=== PATIENT | female | born 1950 | race Caucasian/White ===

== ENCOUNTER → 2016-09-19 | Outpatient (CLI) | payer MEDICARE, BC ==
[~2016-09-19] MED LIST: AMARYL1 MG PO; ASPIRIN 81M81 MG/TA2 PO; B-12 100 MCG PO; CALCIUM 600/VIT1 CAP PO; FISH OIL 1000MG1 CAP PO; FOSAMAX 70MG TA70 MG PO; GLUCOPHAGE500 MG/TAB PO; IRON TABLETS325 MG PO; LOTENSIN HCT 201 TAB PO; PRESERVISION1 SGL PO; VITAMIN C500 MG PO; VITAMIN D31000 IU PO; ZOCOR 10MG10 MG PO
== END ==
LOC: MC.RAD 09:20
DX: Z12.31 Encounter for screening mammogram for malignant neoplasm of breast (principal)

== ENCOUNTER → 2017-05-14 | Outpatient (CLI) | payer MEDICARE, BC ==
[~2017-05-14] VITALS: Ht 165.1 cm; Wt 96.3 kg
[2017-05-14 05:59] VITALS: BP 140/78; PULSE 73
[2017-05-14 07:10] VITALS: BP 144/80; PULSE 86
[2017-05-14 07:20] VITALS: BP 150/82; PULSE 130
[2017-05-14 07:22] VITALS: BP 160/88; PULSE 104
[2017-05-14 07:24] VITALS: BP 142/82; PULSE 93
== END ==
LOC: COL.CARD 05:45
DX: R06.02 Shortness of breath (principal); M25.511 Pain in right shoulder; M25.512 Pain in left shoulder
CPT/HCPCS: A9502; J2785

== ENCOUNTER → 2018-06-02 | Outpatient (CLI) | payer MEDICARE, BC | LOC: MHCPAIN 09:28 | DX: G89.29 Other chronic pain (principal); M47.817 Spondylosis without myelopathy or radiculopathy, lumbosacral region; M54.16 Radiculopathy, lumbar region; M53.3 Sacrococcygeal disorders, not elsewhere classified; M79.10 Myalgia, unspecified site | CPT/HCPCS: G0463 ==

== ENCOUNTER → 2018-06-10 | Outpatient (CLI) | payer MEDICARE, BC | LOC: MHCPAIN 13:29 | DX: G57.03 Lesion of sciatic nerve, bilateral lower limbs (principal) | CPT/HCPCS: G0260; J1040 ==

== ENCOUNTER → 2018-07-13 | Outpatient (CLI) | payer MEDICARE, BC | LOC: MHCPAIN 09:17 | DX: G89.29 Other chronic pain (principal); M47.817 Spondylosis without myelopathy or radiculopathy, lumbosacral region; M54.16 Radiculopathy, lumbar region; M53.3 Sacrococcygeal disorders, not elsewhere classified; M54.9 Dorsalgia, unspecified | CPT/HCPCS: G0463 ==

== ENCOUNTER 2018-08-10 16:56 | Inpatient (IN) | payer MEDICARE, BC ==
[~2018-08-10] VITALS: Ht 165.1 cm; Wt 89.0 kg
[2018-08-10] VITALS (183 sets, daily range): BP systolic 139; BP diastolic 79; PULSE 94; TEMP 97.6; O2SAT 85–100
[2018-08-10 17:41] LABS: BASO % 0.2 % (0.0-2.0); EOS % 0.3 % (0-4.0); GRAN # 7.4 (1.4-6.5); GRAN % 83.3 % (42.2-75.2); LYMPH # 0.8 (1.2-3.4); LYMPH % 8.6 % (20.0-51.0); MEAN CELL VOLUME 98 fl (80.0-100.0); MEAN CORPUSCULAR HGB CONC 34 g/dl (33.0-37.0); MEAN PLATELET VOLUME 9.9 fl (7.4-10.4); MONO # 0.6 (0.1-0.6); MONO % 6.7 % (1.7-9.3); PLATELET COUNT 207 K/mm3 (130-400); RED BLOOD COUNT 2.73 M/mm3 (4.10-5.30); REDCELL DISTRIBUTION WIDTH-CV 12.9 % (11.5-14.5)
[2018-08-10 17:42] LABS: HEMATOCRIT 26.8 % (37.0-47.0); MEAN CORPUSCULAR HEMOGLOBIN 33 pg (27.0-31.0)
[2018-08-10 17:53] LABS: ALANINE AMINOTRANSFERASE 25 U/L (9-52); ALKALINE PHOSPHATASE 57 U/L (50-136); ANION GAP 23 mmol/L (7-16); AST,SGOT 18 U/L (15-37); BILIRUBIN,TOTAL 0.8 mg/dL (0.0-1.0); BLOOD UREA NITROGEN 90 mg/dL (7-17); CALCIUM 9.1 mg/dL (8.4-10.2); CHLORIDE 105 mmol/L (98-107); GLUCOSE 251 mg/dL (74-106); POTASSIUM 3.6 mmol/L (3.4-5.0); SODIUM 139 mmol/L (137-145); TOTAL PROTEIN 6.6 gm/dL (6.4-8.2)
[2018-08-10 18:06] LABS: C-REACTIVE PROTEIN < 0.5 mg/dL (0.0-0.9); CARBON DIOXIDE 11 mmol/L (22-30); CREATININE, serum 9.73 mg/dL (0.52-1.25); TROPONIN-I < 0.012 ng/mL (0.000-0.034)
[2018-08-10] MEDS ORDERED: TOPROL XL 50MG50 MG PO (18:54)
[2018-08-10] MEDS ORDERED: GLUCOPHAGE500 MG/TAB PO (19:20)
[2018-08-10] MEDS ORDERED: ZOFRAN ODT8 MG PO (21:43)
[2018-08-10] MEDS ORDERED: ASPIRIN 81M81 MG/TA2 PO (22:15)
[2018-08-10] MEDS ORDERED: CALTRATE-600 W600 MG PO (22:16)
[2018-08-10] MEDS ORDERED: IRON (22:17)
[2018-08-10] MEDS ORDERED: OMEGA-3 FISH1000 MG PO (22:18)
[2018-08-10] MEDS ORDERED: VITAMIN B12 (22:20)
[2018-08-10] MEDS ORDERED: TRIAMCINOLONE A15 G1 TP (22:20)
[2018-08-10] MEDS ORDERED: VITAMIN C (22:21)
[2018-08-10] MEDS ORDERED: VITAMIN D31000 I1 PO (22:21)
[2018-08-11] VITALS (369 sets, daily range): BP systolic 137–176; BP diastolic 53–76; PULSE 74–100; TEMP 97.3–98.2; O2SAT 92–100
[2018-08-11 05:45] LABS: BASO % 0.3 % (0.0-2.0); EOS # 0.1 (0.0-0.7); EOS % 1.1 % (0-4.0); GRAN # 5.6 (1.4-6.5); GRAN % 73.5 % (42.2-75.2); LYMPH % 13.8 % (20.0-51.0); MEAN CELL VOLUME 98 fl (80.0-100.0); MEAN CORPUSCULAR HGB CONC 34 g/dl (33.0-37.0); MONO # 0.8 (0.1-0.6); MONO % 10.6 % (1.7-9.3); PLATELET COUNT 151 K/mm3 (130-400); RED BLOOD COUNT 2.33 M/mm3 (4.10-5.30); REDCELL DISTRIBUTION WIDTH-CV 12.9 % (11.5-14.5)
[2018-08-11 05:47] LABS: HEMATOCRIT 22.9 % (37.0-47.0); HEMOGLOBIN 7.7 g/dl (12.5-16.0); MEAN CORPUSCULAR HEMOGLOBIN 33 pg (27.0-31.0)
[2018-08-11 05:53] LABS: INR 1.1 (0.8-3.0); PROTHROMBIN TIME 12.4 SECONDS (9.7-12.8)
[2018-08-11 05:56] LABS: HEMOGLOBIN A1C 5.9 %
[2018-08-11 05:58] LABS: ALBUMIN 3.1 gm/dL (3.5-5.0); BILIRUBIN,TOTAL 0.8 mg/dL (0.0-1.0); CALCIUM 8.4 mg/dL (8.4-10.2); POTASSIUM 3.3 mmol/L (3.4-5.0); TOTAL PROTEIN 5.4 gm/dL (6.4-8.2)
[2018-08-11 06:03] LABS: CREATININE, serum 9.03 mg/dL (0.52-1.25)
[2018-08-11 06:23] LABS: LACTIC ACID 4.2 mmol/L (0.4-2.0)
[2018-08-11 10:32] LABS: COLLECTION METHOD CLEAN CATCH
[2018-08-11 10:59] LABS: URINE PROTEIN:CREAT RATIO 0.67 (0.00-0.14)
[2018-08-11 11:03] LABS: MUCOUS Present /lpf; PH 5 (5-8); SQUAMOUS EPITHELIAL 0-2 /hpf; URINE APPEARANCE Clear; URINE BACTERIA None Seen /hpf; URINE BILIRUBIN Negative (NEGATIVE); URINE BLOOD Negative (NEGATIVE); URINE COLOR Yellow; URINE GLUCOSE Negative (NEGATIVE); URINE KETONE Trace (NEGATIVE); URINE LEUKOCYTE ESTERASE Negative (NEGATIVE); URINE NITRATE Negative (NEGATIVE); URINE PROTEIN(semi-quant) 1+ (NEGATIVE); URINE RBC None Seen /hpf; URINE UROBILINOGEN Negative (NEGATIVE); URINE WBC 0-2 /hpf
[2018-08-11 17:57] LABS: COMPLEMENT-C3 89 mg/dL (79-152); COMPLEMENT-C4 26 mg/dL (18-55)
[2018-08-11 20:48] LABS: C-ANCA 3 U/mL (0-99)
[2018-08-12] VITALS (15 sets, daily range): BP systolic 137–186; BP diastolic 43–85; PULSE 61–76; TEMP 97.8–98.2
[2018-08-12 06:13] LABS: BASO % 0.2 % (0.0-2.0); EOS # 0.1 (0.0-0.7); EOS % 1.1 % (0-4.0); GRAN # 4.8 (1.4-6.5); LYMPH % 15.6 % (20.0-51.0); MEAN CELL VOLUME 98 fl (80.0-100.0); MEAN CORPUSCULAR HGB CONC 34 g/dl (33.0-37.0); MEAN PLATELET VOLUME 10.1 fl (7.4-10.4); MONO # 0.7 (0.1-0.6); MONO % 10.5 % (1.7-9.3); PLATELET COUNT 164 K/mm3 (130-400); RED BLOOD COUNT 2.12 M/mm3 (4.10-5.30); REDCELL DISTRIBUTION WIDTH-CV 13.2 % (11.5-14.5)
[2018-08-12 06:14] LABS: HEMATOCRIT 20.7 % (37.0-47.0); MEAN CORPUSCULAR HEMOGLOBIN 33 pg (27.0-31.0)
[2018-08-12 06:27] LABS: ALBUMIN 2.9 gm/dL (3.5-5.0); BILIRUBIN,TOTAL 0.3 mg/dL (0.0-1.0); CALCIUM 7.5 mg/dL (8.4-10.2); MAGNESIUM 1.4 mg/dL (1.6-2.3); POTASSIUM 3.3 mmol/L (3.4-5.0); TOTAL PROTEIN 5.1 gm/dL (6.4-8.2)
[2018-08-12 06:51] LABS: CREATININE, serum 8.74 mg/dL (0.52-1.25)
[2018-08-13] VITALS (11 sets, daily range): BP systolic 123–185; BP diastolic 45–71; PULSE 66–81; TEMP 97–98.6
[2018-08-13 07:57] LABS: BASO % 0.2 % (0.0-2.0); EOS # 0.2 (0.0-0.7); EOS % 3.4 % (0-4.0); GRAN # 4.2 (1.4-6.5); GRAN % 71.5 % (42.2-75.2); LYMPH # 0.8 (1.2-3.4); LYMPH % 13.4 % (20.0-51.0); MEAN CELL VOLUME 98 fl (80.0-100.0); MEAN CORPUSCULAR HGB CONC 34 g/dl (33.0-37.0); MEAN PLATELET VOLUME 10.3 fl (7.4-10.4); MONO # 0.7 (0.1-0.6); PLATELET COUNT 164 K/mm3 (130-400); RED BLOOD COUNT 2.09 M/mm3 (4.10-5.30); REDCELL DISTRIBUTION WIDTH-CV 13.3 % (11.5-14.5)
[2018-08-13 08:00] LABS: HEMOGLOBIN 6.9 g/dl (12.5-16.0); MEAN CORPUSCULAR HEMOGLOBIN 33 pg (27.0-31.0)
[2018-08-13 08:01] LABS: HEMATOCRIT 20.5 % (37.0-47.0)
[2018-08-13 08:04] LABS: CALCIUM 7.7 mg/dL (8.4-10.2); MAGNESIUM 1.6 mg/dL (1.6-2.3); PHOSPHOROUS 4.7 mg/dL (2.5-4.5)
[2018-08-13 08:06] LABS: CREATININE, serum 5.68 mg/dL (0.52-1.25)
[2018-08-13 10:58] LABS: INR 1.1 (0.8-3.0); PROTHROMBIN TIME 12.2 SECONDS (9.7-12.8)
[2018-08-13 11:01] LABS: PARTIAL THROMBOPLASTIN TIME 37.1 SECONDS (26.0-37.0)
[2018-08-13 19:16] LABS: HEMATOCRIT 26.2 % (37.0-47.0); HEMOGLOBIN 8.8 g/dl (12.5-16.0)
[2018-08-14] VITALS (13 sets, daily range): BP systolic 129–161; BP diastolic 38–76; PULSE 64–78; TEMP 97.8–98.2
[2018-08-14 00:41] LABS: HEPATITIS B CORE AB,TOTAL Negative (()); HEPATITIS B SURFACE ANTIGEN Negative (Negative); HEPATITIS C VIRUS ANTIBODY Negative (Negative)
[2018-08-14 08:36] LABS: CALCIUM 8.1 mg/dL (8.4-10.2); POTASSIUM 3.3 mmol/L (3.4-5.0)
[2018-08-14 08:44] LABS: CREATININE, serum 4.22 mg/dL (0.52-1.25)
[2018-08-15 06:04] LABS: BASO % 0.2 % (0.0-2.0); EOS # 0.2 (0.0-0.7); EOS % 3.2 % (0-4.0); GRAN # 2.6 (1.4-6.5); GRAN % 56.6 % (42.2-75.2); LYMPH % 22.5 % (20.0-51.0); MEAN CELL VOLUME 97 fl (80.0-100.0); MEAN CORPUSCULAR HGB CONC 34 g/dl (33.0-37.0); MEAN PLATELET VOLUME 10.3 fl (7.4-10.4); MONO # 0.8 (0.1-0.6); MONO % 16.2 % (1.7-9.3); PLATELET COUNT 123 K/mm3 (130-400); RED BLOOD COUNT 2.33 M/mm3 (4.10-5.30); REDCELL DISTRIBUTION WIDTH-CV 14.1 % (11.5-14.5)
[2018-08-15 06:05] LABS: HEMATOCRIT 22.5 % (37.0-47.0); HEMOGLOBIN 7.6 g/dl (12.5-16.0); MEAN CORPUSCULAR HEMOGLOBIN 33 pg (27.0-31.0)
[2018-08-15 06:17] LABS: CALCIUM 8.1 mg/dL (8.4-10.2); CREATININE, serum 2.55 mg/dL (0.52-1.25); POTASSIUM 3.4 mmol/L (3.4-5.0)
[2018-08-15 07:59] VITALS: BP 164/68; PULSE 69; TEMP 98.1
[2018-08-15 11:40] VITALS: BP 166/64; PULSE 71; TEMP 98.4
== END 2018-08-15 13:39 | disposition home or self-care (01) | DRG 674 ==
LOC: COL.ER 16:56 → ICU 19:00 → MEDICAL 08-11 14:38
PROVIDERS: Emergency Medicine; Internal Medicine; Nurse Practitioner; Physician Assistant
PROC: 0JHD0XZ Insertion of Tunneled Vascular Access Device into Right Upper Arm Subcutaneous Tissue and Fascia, Open Approach (ICD-10-PCS; principal; 2018-08-11)
PROC: 06H033Z Insertion of Infusion Device into Inferior Vena Cava, Percutaneous Approach (ICD-10-PCS; 2018-08-11)
PROC: 5A1D70Z Performance of Urinary Filtration, Intermittent, Less than 6 Hours Per Day (ICD-10-PCS; 2018-08-12)
PROC: 5A1D70Z Performance of Urinary Filtration, Intermittent, Less than 6 Hours Per Day (ICD-10-PCS; 2018-08-13)
PROC: 5A1D70Z Performance of Urinary Filtration, Intermittent, Less than 6 Hours Per Day (ICD-10-PCS; 2018-08-14)
PROC: 0T913ZX Drainage of Left Kidney, Percutaneous Approach, Diagnostic (ICD-10-PCS; 2018-08-14)
DX: N17.9 Acute kidney failure, unspecified (principal); E87.2 Acidosis; I10 Essential (primary) hypertension; E11.3293 Type 2 diabetes mellitus with mild nonproliferative diabetic retinopathy without macular edema, bilateral; E78.5 Hyperlipidemia, unspecified; Z98.84 Bariatric surgery status; D64.9 Anemia, unspecified; E87.6 Hypokalemia; E83.39 Other disorders of phosphorus metabolism
CPT/HCPCS: 99223-AI; 99232-AI; 99233-AI; 99239; A4216; C1769; J0360; J0690; J0696; J0882; J1644; J1815; J2250; J2405; J2550; J3010; J7030; P9016

== ENCOUNTER → 2018-09-21 | Outpatient (CLI) | payer MEDICARE, BC ==
[~2018-09-21] MED LIST changes: +CALTRATE-600 W600 MG PO; +IRON; +OMEGA-3 FISH1000 MG PO; +TOPROL XL 50MG50 MG PO; +TRIAMCINOLONE A15 G1 TP; +VITAMIN B12; +VITAMIN C; +VITAMIN D31000 I1 PO; +ZOFRAN ODT8 MG PO
== END ==
LOC: COL.VAS 08:53
DX: N18.6 End stage renal disease (principal); Z99.2 Dependence on renal dialysis
CPT/HCPCS: G0365

== ENCOUNTER → 2018-10-12 | Outpatient (CLI) | payer MEDICARE, BC | LOC: MHCPAIN 09:16 | DX: G89.29 Other chronic pain (principal); M53.3 Sacrococcygeal disorders, not elsewhere classified; M54.16 Radiculopathy, lumbar region; M47.816 Spondylosis without myelopathy or radiculopathy, lumbar region | CPT/HCPCS: G0463 ==

== ENCOUNTER 2018-11-04 11:15 | Outpatient (RCR) | payer MEDICARE, BC | END 2018-11-16 | disposition home or self-care (01) | LOC: WSPT | DX: M54.2 Cervicalgia (principal); M54.6 Pain in thoracic spine; G89.29 Other chronic pain | CPT/HCPCS: G8978-GP; G8979-GP ==

== ENCOUNTER → 2018-11-23 | Outpatient (CLI) | payer MEDICARE, BC | LOC: MC.RAD 14:54 | DX: Z12.31 Encounter for screening mammogram for malignant neoplasm of breast (principal) ==

== ENCOUNTER → 2018-12-09 | Outpatient (CLI) | payer MEDICARE, BC ==
[~2018-12-09] VITALS: Ht 165.1 cm; Wt 87.0 kg
[~2018-12-09] MED LIST changes: +ATARAX 10MG10 MG/TAB PO; +BIOTIN5000 MCG PO; +PHOSLO667 MG PO; +PROBIOTIC FORMU1 CAP PO; +VITAMIN B125000 MCG PO; +[UNRECOGNIZED DRUG - OTHER] PO
[2018-12-09 14:31] VITALS: BP 148/66; PULSE 90
[2018-12-09 14:40] VITALS: BP 155/65; PULSE 83
--- NOTE | 2018-12-09 14:53 | NUR ---
Discharge instructions gone over with pt. Pt out to car per ambulation. Dressing clean dry and intact.
== END ==
LOC: COL.RAD 14:13
DX: N18.6 End stage renal disease (principal)

== ENCOUNTER 2019-01-18 14:15 | Outpatient (RCR) | payer MEDICARE, BC ==
[~2019-01-18 14:15] MED LIST changes: -IRON; +IRON PO
[2019-03-17] MEDS ORDERED: ZESTRIL2.5 MG PO (12:35)
[2019-03-17] MEDS ORDERED: ZYRTEC5 MG PO (12:36)
[2019-03-17] MEDS ORDERED: ATARAX 10MG10 MG/TAB PO (12:37)
[2019-03-17] MEDS ORDERED: SINGULAIR 5M5 MG/TAB PO (12:37)
[2019-03-17] MEDS ORDERED: PEPCID 20MG TAB20 MG PO (12:38)
[2019-03-17] MEDS ORDERED: SYNALAR CR0.160GM TP (12:39)
== END 2019-04-04 ==
LOC: WSPT
DX: M54.2 Cervicalgia (principal); M54.6 Pain in thoracic spine; G89.29 Other chronic pain

== ENCOUNTER 2019-03-17 12:01 | Outpatient (CLI) | payer MEDICARE, BC ==
[~2019-03-17] VITALS: Ht 165.1 cm; Wt 86.6 kg
[2019-03-17] MEDS ORDERED: ZESTRIL2.5 MG PO (12:35)
[2019-03-17] MEDS ORDERED: ZYRTEC5 MG PO (12:36)
[2019-03-17] MEDS ORDERED: ATARAX 10MG10 MG/TAB PO (12:37)
[2019-03-17] MEDS ORDERED: SINGULAIR 5M5 MG/TAB PO (12:37)
[2019-03-17] MEDS ORDERED: PEPCID 20MG TAB20 MG PO (12:38)
[2019-03-17] MEDS ORDERED: SYNALAR CR0.160GM TP (12:39)
[2019-03-17 12:46] VITALS: BP 163/68; PULSE 58; TEMP 98.6
[2019-03-17 14:40] VITALS: BP 162/58; PULSE 68
--- NOTE | 2019-03-17 14:40 | NUR ---
Back from Asphalt Paving Supervisor. Alert and oriented. No meds given. VSS. Dr. Harmon called and gave report with orders to allow pt to drive and discharge after one hour post.
[2019-03-17 14:55] VITALS: BP 168/60; PULSE 72
[2019-03-17 15:15] VITALS: BP 166/58; PULSE 72
[2019-03-17 15:25] VITALS: BP 171/63; PULSE 77
[2019-03-17 15:45] VITALS: BP 170/60; PULSE 79
--- NOTE | 2019-03-17 15:45 | NUR ---
INT discontinued intact. Discharge instructions given. Transferred to private car by jesus
== END 2019-03-17 15:52 | disposition home or self-care (01) ==
LOC: COL.CAR 12:01
DX: T82.898A Other specified complication of vascular prosthetic devices, implants and grafts, initial encounter (principal); I12.0 Hypertensive chronic kidney disease with stage 5 chronic kidney disease or end stage renal disease; N18.6 End stage renal disease; Z79.82 Long term (current) use of aspirin
CPT/HCPCS: J0360; J1644; Q9967

== ENCOUNTER 2019-06-21 07:11 | Day surgery (SDC) | payer MEDICARE, BC ==
[~2019-06-21] VITALS: Ht 162.6 cm; Wt 81.7 kg
[2019-06-21] VITALS (7 sets, daily range): BP systolic 120–138; BP diastolic 62–78; PULSE 84–112; TEMP 97.9
[~2019-06-21 07:11] MED LIST changes: +ALOE VERA PO; +CEPHALEXIN500 M1 PO; +COZAAR 50MG50 MG/TAB PO; +MULTI VITAMINS1 TAB PO; +PEPCID 20MG TAB20 MG PO; +PRILOSEC 20MG20 MG PO; +SINGULAIR 5M5 MG/TAB PO; +SYNALAR CR0.160GM TP; +ZESTRIL2.5 MG PO; +ZYRTEC5 MG PO
[2019-06-21 07:43] LABS: MEAN CELL VOLUME 108 fl (80.0-100.0); MEAN CORPUSCULAR HGB CONC 31 g/dl (33.0-37.0); MEAN PLATELET VOLUME 9.7 fl (7.4-10.4); PLATELET COUNT 172 K/mm3 (130-400); RED BLOOD COUNT 2.95 M/mm3 (4.10-5.30); REDCELL DISTRIBUTION WIDTH-CV 14.3 % (11.5-14.5)
[2019-06-21] MEDS ORDERED: XOLAIR150 MG/1 M SQ (07:47)
[2019-06-21] MEDS ORDERED: TOPROL XL 25MG25 MG PO (07:49)
[2019-06-21] MEDS ORDERED: ELIQUIS 5MG PO (07:49)
[2019-06-21 07:51] LABS: HEMATOCRIT 31.8 % (37.0-47.0); HEMOGLOBIN 9.9 g/dl (12.5-16.0); MEAN CORPUSCULAR HEMOGLOBIN 34 pg (27.0-31.0)
[2019-06-21 07:52] LABS: CALCIUM 8.8 mg/dL (8.4-10.2); MAGNESIUM 2.2 mg/dL (1.6-2.3)
[2019-06-21 07:58] LABS: INR 1.4 (0.8-3.0)
[2019-06-21 07:59] LABS: CREATININE, serum 5.32 (0.52-1.25)
[2019-06-21 08:10] LABS: PARTIAL THROMBOPLASTIN TIME 34.9 SECONDS (26.0-37.0)
[2019-06-21 08:23] LABS: THYROID STIMULATING HORMONE 1.96 uIU/mL (0.465-4.680)
--- NOTE | 2019-06-21 09:34 | NUR ---
ALL MEDICATIONS GIVEN PER VORB WITH MD. SEE MERGE FOR ALL MEDICATON ADMIN TIMES. SEE MERGE FOR ALL RASS ASSESSMENTS DURING AND POST PROCEDURE. ANESTHESIA PRESENT GIVING SEDATION.
[2019-06-21] MEDS ORDERED: CEPHALEXIN500 M1 PO (10:19)
[2019-06-21] MEDS ORDERED: MULTAQ400 MG PO (10:20)
[2019-06-21] MEDS ORDERED: TOPROL XL 50MG50 MG PO (10:21)
--- NOTE | 2019-06-21 10:23 | NUR ---
back from labor crew supervisor. Dressing to left upp chest CD&I. VSS. Will continue to monitor
--- NOTE | 2019-06-21 11:27 | NUR ---
INT discontinued intact. VSS. Denies pain at this time.
--- NOTE | 2019-06-21 11:50 | NUR ---
Discharge instructions given. Transferred to private car by jesus
== END 2019-06-21 11:56 | disposition home or self-care (01) ==
LOC: COL.CAR 07:11
PROVIDERS: Internal Medicine Cardiovascular Disease
DX: T14.8XXA Other injury of unspecified body region, initial encounter (principal); I48.91 Unspecified atrial fibrillation; I08.3 Combined rheumatic disorders of mitral, aortic and tricuspid valves; G47.33 Obstructive sleep apnea (adult) (pediatric); E78.5 Hyperlipidemia, unspecified; E66.9 Obesity, unspecified; G89.29 Other chronic pain; I12.0 Hypertensive chronic kidney disease with stage 5 chronic kidney disease or end stage renal disease; E11.22 Type 2 diabetes mellitus with diabetic chronic kidney disease; N18.6 End stage renal disease; Z99.2 Dependence on renal dialysis; D63.1 Anemia in chronic kidney disease; Z79.01 Long term (current) use of anticoagulants; Z79.82 Long term (current) use of aspirin; Z79.899 Other long term (current) drug therapy; Z98.84 Bariatric surgery status
CPT/HCPCS: J0690; J2250; J2704; J7030

== ENCOUNTER → 2019-08-03 | Outpatient (CLI) | payer MEDICARE, BC ==
[~2019-08-03] MED LIST changes: +ELIQUIS 5MG PO; +MULTAQ400 MG PO; +TOPROL XL 25MG25 MG PO; +XOLAIR150 MG/1 M SQ
== END ==
LOC: COL.RAD 09:08
DX: R06.02 Shortness of breath (principal)

== ENCOUNTER → 2019-09-24 | Outpatient (CLI) | payer MEDICARE, BC | LOC: COL.RAD 10:47 | DX: R06.02 Shortness of breath (principal) ==

== ENCOUNTER → 2019-12-21 | Outpatient (CLI) | payer MEDICARE, BC | LOC: ZCOL.LAB 15:20 | DX: Z11.59 Encounter for screening for other viral diseases (principal); N18.6 End stage renal disease ==

== ENCOUNTER 2020-02-02 14:59 | Outpatient (RCR) | payer MEDICARE, BC | END 2020-02-03 | disposition still patient (30) | LOC: COL.CR | DX: Z48.812 Encounter for surgical aftercare following surgery on the circulatory system (principal); Z95.5 Presence of coronary angioplasty implant and graft ==

== ENCOUNTER 2020-02-18 08:03 | Day surgery (SDC) | payer MEDICARE, BC ==
[~2020-02-18] VITALS: Ht 162.6 cm; Wt 72.7 kg
[2020-02-18 08:29] VITALS: BP 129/56; PULSE 70; TEMP 97.4
--- NOTE | 2020-02-18 08:40 | NUR ---
The patient's blood sugar was checked with blood obtained from her IV start with a result of 68. The patient states that it was "74" when she checked it at home upon waking up. CECILIA Markham was notified of the result and orders were obtained to given 1/4 ampule of D50 at this and to recheck her blood sugar. The patient denies feeling symptomatic of low blood sugar at this time. Will continue to monitor the patient.
[2020-02-18] MEDS ORDERED: MULTAQ400 MG PO (08:50)
[2020-02-18] MEDS ORDERED: PROTONIX 40MG T40 MG PO (08:54)
[2020-02-18] MEDS ORDERED: LIPITOR 80MG80 MG PO (08:55)
[2020-02-18] MEDS ORDERED: COREG 3.123.125 MG/T PO (08:56)
[2020-02-18] MEDS ORDERED: SINGULAIR 110 MG/TAB PO (08:57)
[2020-02-18] MEDS ORDERED: ZYRTEC5 MG PO (08:57)
[2020-02-18] MEDS ORDERED: PLAVIX 75MG TAB75 MG PO (08:58)
[2020-02-18] MEDS ORDERED: THE MEDICINE S200 M2 PO (08:59)
[2020-02-18] MEDS ORDERED: VITAMIN B122500 MCG SL (08:59)
[2020-02-18] MEDS ORDERED: BIOTIN2500 MCG PO (08:59)
[2020-02-18] MEDS ORDERED: [UNRECOGNIZED DRUG - OTHER] PO (09:00)
[2020-02-18] MEDS ORDERED: VTAMINC250TA PO (09:00)
--- NOTE | 2020-02-18 09:05 | NUR ---
The patient's blood sugar was rechecked with a result of 75. CECILIA Markham was notified of the new blood sugar at this time. An order to repeat the 1/4 ampule of D50 was obtained and administered at this time. The patient continues to feel asymptomatic. Call light is within reach. Will continue to monitor the patient.
[2020-02-18 10:15] VITALS: BP 119/58; PULSE 63; TEMP 97.1
[2020-02-18 10:30] VITALS: BP 130/59; PULSE 61
[2020-02-18 10:45] VITALS: BP 142/58; PULSE 60; TEMP 97.1
--- NOTE | 2020-02-18 12:38 | NUR ---
PT ALERT AND SLEEPY. ORIENTATED TO TIME, PLACE AND NAME. LUNGS CLEAR, HRR, BOWEL SOUNDS PRESENT. REQUESTED SPRITE TO DRINK. WILL CONT TO MONITOR.
--- NOTE | 2020-02-18 12:43 | NUR ---
PT TOLERATED CRACKERS AND SPRITE. VSS, PT DENIES PAIN OR NAUSEA. DISCHARGE INSTRUCTIONS GIVEN, PT VOICED UNDERSTANDING. IV DC'D PER RIGHT AC. PT TOLERATED WELL. 'ELIZABETH' CALLED TO COME MACHINE SCALLOP CUTTER PT AND TAKE HER HOME. PT TAKEN TO THE PT ADMISSIONS DEPT AND DISCHARGED PER WITHOUT DIFFICULTY.
[2020-02-18 21:05] VITALS: BP 107/50; PULSE 63
== END 2020-02-18 13:07 | disposition home or self-care (01) ==
LOC: SDCO 08:03
DX: K21.0 Gastro-esophageal reflux disease with esophagitis (principal); K92.1 Melena; D50.9 Iron deficiency anemia, unspecified; Q27.33 Arteriovenous malformation of digestive system vessel; I48.91 Unspecified atrial fibrillation; I12.9 Hypertensive chronic kidney disease with stage 1 through stage 4 chronic kidney disease, or unspecified chronic kidney disease; E11.22 Type 2 diabetes mellitus with diabetic chronic kidney disease; N18.9 Chronic kidney disease, unspecified; Z99.2 Dependence on renal dialysis; Z95.0 Presence of cardiac pacemaker; E78.00 Pure hypercholesterolemia, unspecified; G47.33 Obstructive sleep apnea (adult) (pediatric); Z79.84 Long term (current) use of oral hypoglycemic drugs; Z83.71 Family history of colonic polyps; Z79.02 Long term (current) use of antithrombotics/antiplatelets; Z79.899 Other long term (current) drug therapy; Z79.82 Long term (current) use of aspirin; I44.1 Atrioventricular block, second degree; Z98.84 Bariatric surgery status
CPT/HCPCS: J2704; J7030

== ENCOUNTER 2020-03-22 15:19 | Outpatient (RCR) | payer MEDICARE, BC ==
[~2020-03-22 15:19] MED LIST changes: +BIOTIN2500 MCG PO; +COREG 3.123.125 MG/T PO; +LIPITOR 80MG80 MG PO; +PLAVIX 75MG TAB75 MG PO; +PROTONIX 40MG T40 MG PO; +SINGULAIR 110 MG/TAB PO; +THE MEDICINE S200 M2 PO; +VITAMIN B122500 MCG SL; +VTAMINC250TA PO; +[UNRECOGNIZED DRUG - OTHER] PO
== END 2020-03-24 07:58 | disposition home or self-care (01) ==
LOC: COL.CR 15:19
DX: Z48.812 Encounter for surgical aftercare following surgery on the circulatory system (principal); Z95.5 Presence of coronary angioplasty implant and graft

== ENCOUNTER 2020-04-14 16:22 | Outpatient (RCR) | payer SELFPAY | END 2020-06-25 | disposition home or self-care (01) | LOC: COL.CR | DX: Z02.9 Encounter for administrative examinations, unspecified (principal) ==

== ENCOUNTER 2020-06-12 13:45 | Outpatient (RCR) | payer BC, MEDICAID | END 2020-08-27 | disposition home or self-care (01) | LOC: WSPT | DX: M77.52 Other enthesopathy of left foot and ankle (principal); E11.29 Type 2 diabetes mellitus with other diabetic kidney complication; N17.9 Acute kidney failure, unspecified; Z99.2 Dependence on renal dialysis; Z98.84 Bariatric surgery status | CPT/HCPCS: G0283-GP ==

== ENCOUNTER 2020-11-22 08:05 | Outpatient (CLI) | payer MEDICARE, BC ==
[~2020-11-22] VITALS: Ht 162.6 cm; Wt 73.2 kg
[2020-11-22] VITALS (8 sets, daily range): BP systolic 128–140; BP diastolic 56–66; PULSE 80–82; TEMP 97.7
[2020-11-22] MEDS ORDERED: B-121000 MCG PO (08:59)
[2020-11-22] MEDS ORDERED: ESTRACE0.5 MG PO (09:03)
--- NOTE | 2020-11-22 12:30 | NUR ---
PT IS READY FOR DEPARTURE. SHE CAME BACK TO [facility] AT 1030, AND HAS HAD NO PROBLEMS WITH HER FISTUAL, PUNCTURE SITE COVERED WITH CLEAN AND DRY BANDAID, NO HEMATOMA. I REVIEWED DC INSTRUCTIONS WITH PT WHO DENIED ANY QUESTIONS. IV IS DC'D WITH CATH INTACT, DRESSING APPLIED. PT DID NOT HAVE ANY SEDATION DURING PROCEDURE, AND SHE OPTED TO WALK OUT, I WALKED WITH PT TO EXIT, SHE WAS STEADY ON HER FEET.
== END 2020-11-22 14:55 | disposition home or self-care (01) ==
LOC: COL.CAR 08:05
DX: T82.848A Pain due to vascular prosthetic devices, implants and grafts, initial encounter (principal); N18.9 Chronic kidney disease, unspecified; E11.22 Type 2 diabetes mellitus with diabetic chronic kidney disease; I51.9 Heart disease, unspecified; Z90.49 Acquired absence of other specified parts of digestive tract; Z98.84 Bariatric surgery status; Z95.0 Presence of cardiac pacemaker; Z20.822 Contact with and (suspected) exposure to COVID-19; Z79.01 Long term (current) use of anticoagulants; Z79.899 Other long term (current) drug therapy; Z79.84 Long term (current) use of oral hypoglycemic drugs
CPT/HCPCS: J1644; Q9967

== ENCOUNTER → 2020-12-04 | Outpatient (CLI) | payer SELFPAY ==
[~2020-12-04] MED LIST changes: +ANTI-DIARRHEAL2 MG PO; +B-121000 MCG PO; +ESTRACE0.5 MG PO; +PROBIOTIC ACID1 EAC3 PO; +ZOLOFT 50MG50 MG PO
== END ==
LOC: COL.LAB 09:43
DX: Z01.812 Encounter for preprocedural laboratory examination (principal); Z20.822 Contact with and (suspected) exposure to COVID-19

== ENCOUNTER → 2020-12-20 | Outpatient (CLI) | payer MEDICARE, BC | LOC: MC.RAD 14:45 | DX: Z12.31 Encounter for screening mammogram for malignant neoplasm of breast (principal) ==

== ENCOUNTER 2020-12-25 16:41 | Outpatient (RCR) | payer SELFPAY ==
[~2020-12-25 16:41] MED LIST changes: -ANTI-DIARRHEAL2 MG PO; -PROBIOTIC ACID1 EAC3 PO; -ZOLOFT 50MG50 MG PO
[2021-01-18] MEDS ORDERED: ZOLOFT 50MG50 MG PO (14:40)
[2021-01-18] MEDS ORDERED: ANTI-DIARRHEAL2 MG PO (14:41)
[2021-01-18] MEDS ORDERED: PROBIOTIC ACID1 EAC3 PO (14:41)
== END 2021-03-01 | disposition home or self-care (01) ==
LOC: COL.CR
DX: Z02.89 Encounter for other administrative examinations (principal)

== ENCOUNTER 2021-01-07 18:18 | Inpatient (IN) | payer MEDICARE, BC ==
[2021-01-07] VITALS (56 sets, daily range): BP systolic 90; BP diastolic 52; PULSE 105; TEMP 97.6; O2SAT 85–100
[~2021-01-07] VITALS: Ht 162.6 cm; Wt 75.1 kg
[2021-01-07 18:56] LABS: HEMOGLOBIN 11.6 g/dl (12.5-16.0); MEAN CELL VOLUME 101 fl (80.0-100.0); MEAN CORPUSCULAR HEMOGLOBIN 33 pg (27.0-31.0); MEAN CORPUSCULAR HGB CONC 33 g/dl (33.0-37.0); PLATELET COUNT 217 K/mm3 (130-400); REDCELL DISTRIBUTION WIDTH-CV 13.2 % (11.5-14.5)
[2021-01-07 18:57] LABS: HEMATOCRIT 35.2 % (37.0-47.0)
[2021-01-07 19:04] LABS: INR 1.4 (0.8-3.0); PROTHROMBIN TIME 15.8 SECONDS (9.7-12.8)
[2021-01-07 19:08] LABS: ALBUMIN 3.1 gm/dL (3.5-5.0); BILIRUBIN,TOTAL 1.5 mg/dL (0.0-1.0); CREATININE, serum 5.08 (0.52-1.25); MAGNESIUM 2.2 mg/dL (1.6-2.3); PHOSPHOROUS 6.3 mg/dL (2.5-4.5); POTASSIUM 3.4 mmol/L (3.4-5.0); TOTAL PROTEIN 6.1 gm/dL (6.4-8.2)
[2021-01-07 19:09] LABS: STOOL FOR OCCULT BLOOD POSITIVE (NEGATIVE)
[2021-01-07 19:12] LABS: CALCIUM 5.6 mg/dL (8.4-10.2)
[2021-01-07 19:35] LABS: BAND 10 % (0-10); LYMPHOCYTE 2 % (20.0-51.0); NEUTROPHILS 88 % (42.0-75.2)
[2021-01-07 19:50] LABS: C-REACTIVE PROTEIN 40.9 mg/dL (0.0-0.9)
[2021-01-07 22:08] LABS: HEMOGLOBIN 10.6 g/dl (12.5-16.0); MEAN CELL VOLUME 100 fl (80.0-100.0); MEAN CORPUSCULAR HEMOGLOBIN 33 pg (27.0-31.0); MEAN CORPUSCULAR HGB CONC 33 g/dl (33.0-37.0); MEAN PLATELET VOLUME 10.4 fl (7.4-10.4); PLATELET COUNT 178 K/mm3 (130-400); REDCELL DISTRIBUTION WIDTH-CV 13.2 % (11.5-14.5)
--- NOTE | 2021-01-07 22:35 | NUR ---
Pt arrived to ICU room 5 via cart with MAGALY Santiago RN. Pt transferred from the cart to the ICU bed with the assistance of 3. Pt oriented to room and call light system. Pt is resting quietly in the bed at this time and she denies further needs. Call light within reach.
[2021-01-07 22:41] LABS: HEMATOCRIT 31.9 % (37.0-47.0)
[2021-01-07 23:20] LABS: BAND 34 % (0-10); LYMPHOCYTE 3 % (20.0-51.0); NEUTROPHILS 63 % (42.0-75.2); PLATELET ESTIMATE NORMAL (NORMAL)
[2021-01-08] VITALS (941 sets, daily range): BP systolic 93–135; BP diastolic 37–97; PULSE 54–111; TEMP 97.5–99.2; O2SAT 35–100
[2021-01-08 06:42] LABS: MEAN CELL VOLUME 98 fl (80.0-100.0); MEAN CORPUSCULAR HEMOGLOBIN 33 pg (27.0-31.0); MEAN CORPUSCULAR HGB CONC 34 g/dl (33.0-37.0); MEAN PLATELET VOLUME 10.3 fl (7.4-10.4); PLATELET COUNT 165 K/mm3 (130-400); REDCELL DISTRIBUTION WIDTH-CV 13.3 % (11.5-14.5)
[2021-01-08 06:48] LABS: CREATININE, serum 5.23 (0.52-1.25); POTASSIUM 3.2 mmol/L (3.4-5.0)
[2021-01-08 07:00] LABS: HEMATOCRIT 29.5 % (37.0-47.0)
--- NOTE | 2021-01-08 07:00 | NUR ---
RECEIVED REPORT FROM IWONA VIDAL. PT RESTING IN BED. CALL LIGHT WITHIN REACH. VSS. DR GUTIERREZ AT BEDSIDE FOR ASSESSMENT. NEW ORDERS RECEIVED. NOTED PT ON 2L VIA NC.
[2021-01-08 07:03] LABS: CALCIUM 5.1 mg/dL (8.4-10.2)
[2021-01-08 07:15] LABS: CLOSTRIDIUM DIFF A/B NEG; CLOSTRIDIUM DIFF A/B INTERP No C.diff present
--- NOTE | 2021-01-08 07:15 | NUR ---
Bedside shift report given to IWONA Walters.
--- NOTE | 2021-01-08 08:11 | NUR ---
DR HANSEN AT BEDSIDE FOR ASSESSMENT.
--- NOTE | 2021-01-08 08:37 | NUR ---
THORACENTESIS STARTED BY DR HANSEN. ENDED AT 0842. PT TOLERATED WELL. VSS. PT REMAINS ON 2L VIA ME.
--- NOTE | 2021-01-08 08:58 | NUR ---
SUSAN DUFF WITH DR WILHELM AT BEDSIDE FOR ASSESSMENT. DISCUSSED PT'S CA LEVEL AND FSBS. PROVIDER STATES WILL REASSESS NEED FOR POSSIBLE INSULIN GTT AFTER NEXT FSBS RESULT AT 12 TODAY. PT REMAINS STABLE.
[2021-01-08 09:29] LABS: PLEURAL FLUID RBC 4000 /mm3 (0-0); PLEURAL FLUID WBC 6681 /mm3
[2021-01-08 09:30] LABS: GLUCOSE,PLEURAL FLUID 304 mg/dL; TOTAL PROTEIN,PLEURAL FLUID 2.8 gm/dL
[2021-01-08 09:34] LABS: PLEURAL FLUID APPEARANCE HAZY; PLEURAL FLUID COLOR YELLOW
--- NOTE | 2021-01-08 10:22 | NUR ---
Cutting And Splicing Supervisor met with patient to discuss discharge planning. Patient lives alone in [place] and sees Dr. Luna for primary care. Patient obtains medications from [facility] with no difficulties and has a cane at home that she uses occasionally. Patient does not use oxygen at home but currently requires it. Patient is a dialysis patient and advised she drives herself to her appointments. Patient reports independence with ADLS and plans to return home upon discharge. Patient denies any current or previous home health services but indicated she may be interested in services upon discharge. PT/OT has been ordered. Patient has Advance Directives in EMR which designate her niece, Kim Mafyield (ph#[phone]) and sister, Kathryn Mayfield. Patient states her sister, Kathryn is not doing so well and would prefer her other sister, Samantha Montilla (ph#[phone]) be listed as an alternate contact. Discharge Plan: Home, pending PT/OT recommendations. Possible Home Health.
--- NOTE | 2021-01-08 12:37 | NUR ---
First visit from the electronic component processor. Patient was sleeping, electronic component processor prayed for patient outside their door.
--- NOTE | 2021-01-08 12:55 | NUR ---
NOTIFIED SUSAN DUFF ABOUT FSBS 350 STILL. PROVIDER REQUESTS TO START PT ON INSULIN GTT AND TO MAINTAIN FSBS BETWEEN 140-180. PROVIDER STATES ONCE PT HITS THAT GOAL TO LET HER KNOW AND THEN WILL DECIDE NEXT POC FOR PT AT THAT TIME.
[2021-01-08 13:30] LABS: MAGNESIUM 2.1 mg/dL (1.6-2.3); PHOSPHOROUS 5.3 mg/dL (2.5-4.5)
--- NOTE | 2021-01-08 17:42 | NUR ---
NOTIFIED SUSAN DUFF OF FSBS NOW WITHIN GOAL OF 140-180. NEW ORDERS RECEIVED.
--- NOTE | 2021-01-08 21:00 | NUR ---
Assessment complete. Pt is AXO X3, denies having any pain at this time. Pt is resting quietly in the bed and she requests a popsicle. Call light within reach.
[2021-01-09] VITALS (697 sets, daily range): BP systolic 91–116; BP diastolic 47–67; PULSE 77–89; TEMP 97.2–97.9; O2SAT 43–100
[2021-01-09 00:50] LABS: BODY FLUID PH (AMS) 7 (())
[2021-01-09 05:18] LABS: MEAN CELL VOLUME 98 fl (80.0-100.0); MEAN CORPUSCULAR HGB CONC 33 g/dl (33.0-37.0); MEAN PLATELET VOLUME 9.9 fl (7.4-10.4); PLATELET COUNT 108 K/mm3 (130-400); RED BLOOD COUNT 2.89 M/mm3 (4.10-5.30); REDCELL DISTRIBUTION WIDTH-CV 13.2 % (11.5-14.5)
[2021-01-09 05:21] LABS: HEMATOCRIT 28.4 % (37.0-47.0); HEMOGLOBIN 9.4 g/dl (12.5-16.0); MEAN CORPUSCULAR HEMOGLOBIN 33 pg (27.0-31.0)
[2021-01-09 05:31] LABS: ALBUMIN 2.5 gm/dL (3.5-5.0); BILIRUBIN,TOTAL 0.8 mg/dL (0.0-1.0); CREATININE, serum 5.66 (0.52-1.25); TOTAL PROTEIN 4.9 gm/dL (6.4-8.2)
[2021-01-09 05:36] LABS: CALCIUM 5.6 mg/dL (8.4-10.2)
--- NOTE | 2021-01-09 07:10 | NUR ---
RECEIVED REPORT FORM IWONA VIDAL. PT RESTING IN BED. CALL LIGHT WITHIN REACH. VSS.
--- NOTE | 2021-01-09 10:02 | NUR ---
DR HANSEN AT BEDSIDE FOR ASSESSMENT. INFORMED PHYSICIAN ABOUT ELECTROLYTES, HR HAVING A LOT OF ECTOPY, AND PT'S C/O OF "JUST DONT FEEL WELL."
--- NOTE | 2021-01-09 10:54 | NUR ---
Patiet tolerated 1 hr & 15 min HD tx today. System clotted, pt's blood was returned & planned HD tx tomorrow, Friday01/10/21 @ 0800. No fluid removal today with lower Bps & given 300 mL of NSS.
--- NOTE | 2021-01-09 11:47 | NUR ---
DR WILHELM NOTIFIED OF TROPONIN 0.757, NO NEW ORDERS.
--- NOTE | 2021-01-09 15:53 | NUR ---
ATTEMPTED TO CONTACT RAIN ABOUT MEDICAL RECORDS HE REQUESTED FROM [facility] THAT WE RECEIVED AND PT'S C/O BACK PAIN. NO ANSWERS.
--- NOTE | 2021-01-09 17:15 | NUR ---
SPOKE TO DR WILHELM ABOUT RECORDS AN PT'S BACK PAIN. NEW ORDERS RECEIVED.
--- NOTE | 2021-01-09 17:58 | NUR ---
DR WILHELM AT BEDSIDE FOR ASSESSMENT
--- NOTE | 2021-01-09 22:00 | NUR ---
Assessment complete. Pt is AXO X3, states she has a generalized body ache rated a 4/10. Pt repositioned in bed and she denies further needs. Call light within reach.
[2021-01-10] VITALS (689 sets, daily range): BP systolic 94–113; BP diastolic 38–54; PULSE 62–86; TEMP 97.2–97.8; O2SAT 40–100
[2021-01-10 07:15] LABS: BASO % 0.3 % (0.0-2.0); EOS # 0.1 (0.0-0.7); EOS % 1.6 % (0-4.0); GRAN # 5.4 (1.4-6.5); LYMPH # 0.5 (1.2-3.4); LYMPH % 8.3 % (20.0-51.0); MEAN CELL VOLUME 98 fl (80.0-100.0); MEAN CORPUSCULAR HGB CONC 34 g/dl (33.0-37.0); MEAN PLATELET VOLUME 11.1 fl (7.4-10.4); MONO # 0.1 (0.1-0.6); MONO % 2.3 % (1.7-9.3); PLATELET COUNT 96 K/mm3 (130-400); RED BLOOD COUNT 2.75 M/mm3 (4.10-5.30); REDCELL DISTRIBUTION WIDTH-CV 13.3 % (11.5-14.5)
[2021-01-10 07:17] LABS: INR 1.4 (0.8-3.0); PROTHROMBIN TIME 15.7 SECONDS (9.7-12.8)
[2021-01-10 07:19] LABS: HEMATOCRIT 26.8 % (37.0-47.0); MEAN CORPUSCULAR HEMOGLOBIN 33 pg (27.0-31.0)
--- NOTE | 2021-01-10 07:30 | NUR ---
PATIENT STARTS HEMODIALYSIS AT THIS TIME. SHE IS WEAK, LYING IN BED, NO APPETITE C/O NOT FEELING WELL. VS WNL.
--- NOTE | 2021-01-10 07:38 | NUR ---
Bedside shift report given to IWONA Sprague.
[2021-01-10 07:43] LABS: ALBUMIN 2.5 gm/dL (3.5-5.0); BILIRUBIN UNCONJUGATED 0.1 mg/dL (0.0-1.1); BILIRUBIN,DIRECT 0.5 mg/dL (0.0-0.4); BILIRUBIN,TOTAL 0.6 mg/dL (0.0-1.0); CALCIUM 7.1 mg/dL (8.4-10.2); CREATININE, serum 5.04 (0.52-1.25)
[2021-01-10 07:51] LABS: POTASSIUM 2.8 mmol/L (3.4-5.0)
--- NOTE | 2021-01-10 11:05 | NUR ---
Patient tolerated 3 hour HD tx with 600 mL fluid removal today. Possible next HD tx tomorrow, 01/11/21 @ 0800 pending AM lab results.
--- NOTE | 2021-01-10 11:30 | NUR ---
DR. WILHELM ROUNDS AT THIS TIME. I ASK HIM TO ADDRESS CODE STATUS WITH THE PATIENT. I ALSO ASK HIM IF HE WANTS ME TO RECHECK THE PATIENT'S POTASSIUM AT ANY CERTAIN TIME PRIOR TO TOMORROW MORNING'S LAB DRAW AND HE STATES "NO"
--- NOTE | 2021-01-10 11:33 | NUR ---
Power Shovel Engineer met with patient to review discharge plan. SW advised that OT is recommending post acute rehab upon discharge. Patient states she is open to anything that will make her feel better. SW reviewed options including Inpatient Rehab and local SNFs. Patient would like to have referrals sent to [facility], [facility], and [facility]. Patient doesn't have any preferences at this time but does feel it will be more convienent to have dialysis here while at [facility] instead of having to travel to appointments. BROCK updated Dr. Lazcano that plan will be to send post acute rehab referrals. BROCK contacted Joan [facility] Director to give referral. BROCK then contacted Khalida at [facility] and Nick at [facility] and faxed referrals. SW contacted patient's niece, Kim to provide update on referrals and discharge plan. Kim advised she would be agreeable to any of these options for patient. Discharge Plan: Pending screens from [facility], [facility], and [facility].
--- NOTE | 2021-01-10 12:00 | NUR ---
HEMODIALYSIS DONE AT THIS TIME.
--- NOTE | 2021-01-10 12:15 | NUR ---
PATIENT GETS UP TO CHAIR AT THIS TIME.
--- NOTE | 2021-01-10 17:30 | NUR ---
PATIENT UP TO CHAIR FOR SUPPER AT THIS TIME.
--- NOTE | 2021-01-10 19:26 | NUR ---
REPORT GIVEN TO IWONA VIDAL
--- NOTE | 2021-01-10 20:00 | NUR ---
Assessment complete. Pt is AXO X3, states she has pain in her lower back rated at a 3/10. Pt is sitting up in the chair finishing her dinner at this time and she denies further needs. Call light within reach.
[2021-01-11] VITALS (217 sets, daily range): BP systolic 93–115; BP diastolic 43–60; PULSE 70–91; TEMP 96.9–98; O2SAT 71–100
[2021-01-11 05:50] LABS: MEAN CELL VOLUME 99 fl (80.0-100.0); MEAN CORPUSCULAR HGB CONC 33 g/dl (33.0-37.0); PLATELET COUNT 75 K/mm3 (130-400); RED BLOOD COUNT 2.48 M/mm3 (4.10-5.30); REDCELL DISTRIBUTION WIDTH-CV 13.5 % (11.5-14.5)
[2021-01-11 05:52] LABS: HEMATOCRIT 24.5 % (37.0-47.0); HEMOGLOBIN 8.1 g/dl (12.5-16.0); MEAN CORPUSCULAR HEMOGLOBIN 33 pg (27.0-31.0)
[2021-01-11 06:03] LABS: CALCIUM 7.8 mg/dL (8.4-10.2); CREATININE, serum 3.15 (0.52-1.25)
[2021-01-11 06:05] LABS: POTASSIUM 2.9 mmol/L (3.4-5.0)
--- NOTE | 2021-01-11 07:28 | NUR ---
Bedside shift report given to IWONA Dunaway.
--- NOTE | 2021-01-11 14:38 | NUR ---
Supervisor Paint Roller Covers faxed clinical updates to [facility]. Khalida from [facility] advised they are able to accept once medically stable. Nick from [facility] advised they may be able to accept but she has to contact [facility]. [facility] continues to also screen referral. Discharge Plan: SNF vs [facility]. [facility] can accept once medically stable.
--- NOTE | 2021-01-11 15:29 | NUR ---
PT TO ROOM 342 WITH REPORT FROM MASTER BUSTILLO ICU @ 1400. PT SCHEDULED FOR EGD/ COLONOSCOPY 01/12/21. BOWEL PREP 01/11/21.
--- NOTE | 2021-01-11 15:31 | NUR ---
PT IS A/O X4, LUNGS CTA, BOWEL SOUNDS PRESENT. TRIPPLE LUMED IJ TO LEFT SIDE NECK. PT NORMAL DIALYSIS TU, THUR, SAT. NO DIALYSIS TODAY THURS 01/11/21.
[2021-01-12] VITALS (10 sets, daily range): BP systolic 109–144; BP diastolic 36–52; PULSE 61–77; TEMP 97.4–97.7
--- NOTE | 2021-01-12 05:59 | NUR ---
Resting quietly, no s/s of hypo/hyper glycemia, telemetry in use, updated on colonoscopy today- verbalizes understanding, call barriga w/i reach, NPO status maintained. Will continue to monitor.
--- NOTE | 2021-01-12 12:00 | NUR ---
Patient has been sleeping most the morning. She went down for her EGD. She was refusing all her medications this morning. She denies nausea and pain. She did have one more loose stool before going to her procedure. She will be having dialysis this afternoon. She gets upset with us for messing with her too much. She upset that I recheked her BP because it was low. She stated she just wants to be left alone. Chart off the floor with patient. Consent signed and on the chart.
--- NOTE | 2021-01-12 14:05 | NUR ---
BROCK staffed with the patient's attending, Dr. Lazcano. Dr. Lazcano reports that the patient will be here through the weekend. SW updated him on the discharge plan for post-acute rehab. Dr. Lazcano would prefer [facility] for the patient. BROCK updated [facility] Director. BROCK contacted and faxed updates [facility] and [facility]. BROCK to continue to follow.
[2021-01-12 15:43] LABS: BASO % 0.2 % (0.0-2.0); EOS # 0.2 (0.0-0.7); EOS % 3.2 % (0-4.0); GRAN # 3.8 (1.4-6.5); GRAN % 80.6 % (42.2-75.2); LYMPH # 0.5 (1.2-3.4); LYMPH % 11.2 % (20.0-51.0); MEAN CELL VOLUME 101 fl (80.0-100.0); MEAN CORPUSCULAR HGB CONC 32 g/dl (33.0-37.0); MONO # 0.2 (0.1-0.6); PLATELET COUNT 77 K/mm3 (130-400); REDCELL DISTRIBUTION WIDTH-CV 13.8 % (11.5-14.5)
[2021-01-12 15:48] LABS: HEMATOCRIT 25.2 % (37.0-47.0); HEMOGLOBIN 8.1 g/dl (12.5-16.0); MEAN CORPUSCULAR HEMOGLOBIN 32 pg (27.0-31.0)
[2021-01-12 15:51] LABS: ALBUMIN 2.3 gm/dL (3.5-5.0); CALCIUM 7.4 mg/dL (8.4-10.2); CREATININE, serum 4.19 (0.52-1.25); POTASSIUM 3.2 mmol/L (3.4-5.0)
--- NOTE | 2021-01-12 18:19 | NUR ---
Patient tolerated HD tx with 2L fluid removal today. Next planned HD tx on Friday01/15/21 @ 0800.
--- NOTE | 2021-01-12 19:00 | NUR ---
Patient was back for about an hour before going to [facility] and has been there all afternoon. She is sitting up in bed attempting to eat supper. She is drowsy but partially alert. She denies pain and nausea at this time. She once again refused her oral scheduled medications. She said tomorrow she will get back on her schedule. No other changes at this time. Call light within reach.
--- NOTE | 2021-01-12 20:00 | NUR ---
PT FALLING ASLEEP WHILE EATING. TAKING A FEW BITES. SEE MAR FOR TYENOL GIVEN FOR GENERAL ACHES. LT IJ 3 LUMEN FLUSHES WELL. LT ARM FISTULA WITH GAUZE DRSG CDI. DC'D INT X2 TO RT AC AND RT F/A. PT REPORTS HAD A LOOSE STOOL TODAY BUT NO OBVIOUS BLOOD. PT VERY FATIGUED. CALL LIGHT IN REACH. BED ALARM SET.
[2021-01-13 05:03] VITALS: BP 134/49; PULSE 71; TEMP 98.5
--- NOTE | 2021-01-13 05:34 | NUR ---
LAB HERE. OBTAINED BLOOD VIA BROWN PORTOF LT IJ W/O DIFFICULTY.
[2021-01-13 06:36] LABS: EOS # 0.2 (0.0-0.7); EOS % 5.8 % (0-4.0); GRAN % 74.4 % (42.2-75.2); LYMPH # 0.6 (1.2-3.4); LYMPH % 14.5 % (20.0-51.0); MEAN CELL VOLUME 101 fl (80.0-100.0); MEAN CORPUSCULAR HGB CONC 32 g/dl (33.0-37.0); MEAN PLATELET VOLUME 10.8 fl (7.4-10.4); MONO # 0.2 (0.1-0.6); MONO % 4.3 % (1.7-9.3); PLATELET COUNT 74 K/mm3 (130-400); RED BLOOD COUNT 2.47 M/mm3 (4.10-5.30); REDCELL DISTRIBUTION WIDTH-CV 13.7 % (11.5-14.5)
[2021-01-13 06:39] LABS: MEAN CORPUSCULAR HEMOGLOBIN 32 pg (27.0-31.0)
[2021-01-13 06:49] LABS: CALCIUM 7.7 mg/dL (8.4-10.2); CREATININE, serum 2.6 (0.52-1.25); POTASSIUM 3.1 mmol/L (3.4-5.0)
[2021-01-13 09:00] VITALS: BP 108/42; PULSE 68; TEMP 98.1
[2021-01-13 13:00] VITALS: BP 108/42; PULSE 64; TEMP 97.6
[2021-01-13 16:00] VITALS: BP 137/44; PULSE 76; TEMP 97.6
--- NOTE | 2021-01-13 16:37 | NUR ---
Varnish Melter Helper faxed updates to [facility].
--- NOTE | 2021-01-13 18:30 | NUR ---
Patient has been very weak and tired today. She is trying to eat but can not eat more than a few bites of food at a time. She keeps saying she does not feel well. Her biggest complaint is that she keeps having a cough. She stated her throat feels better and is no longer bugging her. Denies nausea. Dr Lazcano wants to initiate TPN. Spoke with Shade about this. Labs she needs for TPN ordered. No other changes at this time. Call light within reach.
[2021-01-13 20:02] VITALS: BP 130/52; PULSE 81; TEMP 98
--- NOTE | 2021-01-13 20:54 | NUR ---
PT A/O TO SELF, UNABLE TO TELL ME WHERE SHE IS OR WHAT THE DATE IS. PT AWAKE THEN CLOSES EYES. PT DENIES PAIN OR DISCOMFORT AND NO NEEDS AT THIS TIME. CALL LIGHT WITHIN REACH.
[2021-01-14 00:14] VITALS: BP 129/45; PULSE 63; TEMP 97.8
--- NOTE | 2021-01-14 04:34 | NUR ---
NO ISSUES OR CONCERNS NOTED THIS SHIFT. PT REPOSITION SELF IN BED SEVERAL TIMES. WET PROCESS HEAD MILLER THAT HAS WORKED WITH THIS PT STATES THAT THE PT IS ALWAYS CONFUSED, AT THIS TIME OF DAY. PT HAS CALL LIGHT WITHIN REACH AND BED ALARM ON.
[2021-01-14 04:47] VITALS: BP 117/52; PULSE 63; TEMP 97.7
[2021-01-14 06:51] LABS: ALBUMIN 2.3 gm/dL (3.5-5.0); BILIRUBIN,TOTAL 0.6 mg/dL (0.0-1.0); CALCIUM 7.6 mg/dL (8.4-10.2); CREATININE, serum 3.54 (0.52-1.25); MAGNESIUM 2.2 mg/dL (1.6-2.3); PHOSPHOROUS 3.4 mg/dL (2.5-4.5); POTASSIUM 3.3 mmol/L (3.4-5.0); TOTAL PROTEIN 4.9 gm/dL (6.4-8.2)
[2021-01-14 07:31] VITALS: BP 150/41; PULSE 72; TEMP 97.3
[2021-01-14 11:15] VITALS: BP 122/45; PULSE 73; TEMP 97.5
--- NOTE | 2021-01-14 11:30 | NUR ---
Patient has been doing ok this morning. She is more compliant today with her care. She still says she is weak and tired. Her cough has been better today. She is mostly alert and oriented. She knows where she is and why she's here. She will be starting TPN today. Offered to get her in the shower and help her brush her teeth. She refused. She stated she is not up to it and doesn't have the energy. Helped order her breakfast. Earlier in the shift she stated she really just wanted to sleep because she did not sleep all night and wanted to be alone for a while. No other changes at this time. Call light within reach.
--- NOTE | 2021-01-14 14:30 | NUR ---
Was checking patients EMAR for TPN orders. No orders in the computer. Checked the chart and the TPN orders did not get faxed to pharmacy. Called pharmacy, they would not be able to make the TPN today. S Gita DAVIS was here at the time, notified her. She said to make sure they start it tomorrow than. No other changes at this time.
[2021-01-14 15:12] VITALS: BP 148/52; PULSE 74; TEMP 97.2
--- NOTE | 2021-01-14 18:00 | NUR ---
Patient is doing better this evening. She asked for something for thrush, for her mouth. Explained she has been refusing the medication for several days and thats how we treat it. She wanted to try a dose. Gave the last dose she had refused. Explained that it was only ordered for 3 days and this is her last dose. She stated that was fine. She has been able to eat and drink a little better tonight. No other changes at this time. Call light within reach.
[2021-01-14 19:26] VITALS: BP 135/51; PULSE 69; TEMP 97.7
--- NOTE | 2021-01-14 21:00 | NUR ---
Pt. sitting up in bed at this time. Pt. is A&OX3, assessment complete. TLC to lt. IJ. Pt. denies pain or other needs, call light within reach.
[2021-01-15] VITALS (7 sets, daily range): BP systolic 97–144; BP diastolic 42–54; PULSE 58–83; TEMP 96.8–98.2
--- NOTE | 2021-01-15 08:00 | NUR ---
PATIENT IS A&O AND SITTING UP IN BED WITH BREAKFAST TRAY. PATEINT REPORT DECREASED APPETITE BUT NO C/O NAUSEA. PATIENT GOES ON TO SAY THIS ISN'T COMPLETELY UNUSUAL FOR HER WITH DIALYSIS. PATIENT IS SCHEDULED TO HAVE DIALYSIS LATER TODAY. ELECTRONIC BENCH TECHNICIAN REPORTED PATIENT REFUSED TO EAT WHILE ON RENAL DIET AND WAS CHANGED TO GENERAL DIET SO SHE WOULD EAT A LITTE. AM MEDS TAKE WITH A SIP OF WATER. NO FREE WATER OTHERWISE. LEFT IJ TO INT. LEFT UPPER ARM FISTULA WITH GOOD BRUIT & THRILL. PATIENT REPORTS COMING IN TO HOSPITAL WITH BLOOD STOOLS, NONE NOTED THIS SHIFT. EGD/COLON COMPLETED, SEE REPORT. HEAD TO TOE ASSESSMENT COMPLETE. PT/OT CONSULTED. NO OTHER NEEDS AT THIS TIME. CALL LIGHT IN REACH.
--- NOTE | 2021-01-15 10:20 | NUR ---
PATIENT C/O ALMANZAR, GAVE PRN TYLENOL. ROOM LIGHTS TURNED DOWN. PATIENT RESTING WITH CALL LIGHT IN REACH.
--- NOTE | 2021-01-15 10:52 | NUR ---
SW met with patient to follow after the weekend. The patient was resting and states that she is not able to get up to chair from her bed without any help. SW reviewed the d/c plan of post-acute rehab and how [facility] how accepted so far. The patient reports that she is agreeable to going to [facility] upon discharge. BROCK contacted and updated the patient's niece, Kim. Kim is agreeable to the plan. SW to fax updates to [facility] and [facility] and will continue to follow.
[2021-01-15 12:02] LABS: ALBUMIN 2.5 gm/dL (3.5-5.0); BILIRUBIN,TOTAL 0.7 mg/dL (0.0-1.0); CALCIUM 7.3 mg/dL (8.4-10.2); CREATININE, serum 4.48 (0.52-1.25); MAGNESIUM 2.1 mg/dL (1.6-2.3); PHOSPHOROUS 4.3 mg/dL (2.5-4.5); POTASSIUM 3.4 mmol/L (3.4-5.0); TOTAL PROTEIN 5.1 gm/dL (6.4-8.2)
[2021-01-15 12:09] LABS: PRE ALBUMIN 9.9 mg/dL (17.6-36.0)
[2021-01-15 14:25] LABS: MEAN CELL VOLUME 100 fl (80.0-100.0); MEAN CORPUSCULAR HGB CONC 32 g/dl (33.0-37.0); MEAN PLATELET VOLUME 10.9 fl (7.4-10.4); PLATELET COUNT 106 K/mm3 (130-400); RED BLOOD COUNT 2.84 M/mm3 (4.10-5.30); REDCELL DISTRIBUTION WIDTH-CV 13.7 % (11.5-14.5)
[2021-01-15 14:28] LABS: HEMATOCRIT 28.4 % (37.0-47.0); HEMOGLOBIN 9.2 g/dl (12.5-16.0); MEAN CORPUSCULAR HEMOGLOBIN 32 pg (27.0-31.0)
[2021-01-15 14:43] LABS: BAND 7 % (0-10); EOSINOPHIL 2 % (0-4); LYMPHOCYTE 7 % (20.0-51.0); METAMYELOCYTE 1 % (0-0); NEUTROPHILS 80 % (42.0-75.2)
[2021-01-15 14:44] LABS: OVALOCYTES 2+; PLATELET ESTIMATE DECREASED (NORMAL)
--- NOTE | 2021-01-15 16:22 | NUR ---
PATIENT STILL IN DIALYSIS, WILL HANG TPN WHEN BACK IN ROOM.
--- NOTE | 2021-01-15 16:30 | NUR ---
Patient tolerated HD tx with 2L fluid removal. Next HD tx on Friday01/17/21 @ 0800.
--- NOTE | 2021-01-15 21:30 | NUR ---
PATIENT RECEIVED IN THE ROOM CALM.DENIES PAIN.NO OTHER NEEDS AT THIS TIME.
[2021-01-16 04:10] VITALS: BP 135/44; PULSE 62; TEMP 98
--- NOTE | 2021-01-16 06:20 | NUR ---
PATIENT HAD A CALM NIGHT.ON RA.TPNS IN GOOD PROGRESS.BG 230 INSULIN GIVEN PER ORDER.DENIES PAIN.NO OTHER NEEDS AT THIS MOMENT.
[2021-01-16 07:35] LABS: CALCIUM 7.3 mg/dL (8.4-10.2); CREATININE, serum 2.88 (0.52-1.25); MAGNESIUM 2.2 mg/dL (1.6-2.3); PHOSPHOROUS 3.5 mg/dL (2.5-4.5); POTASSIUM 3.1 mmol/L (3.4-5.0)
--- NOTE | 2021-01-16 08:00 | NUR ---
PATIENT IS A&O AND SITTING UP IN BED WITH BREAKFAST TRAY. PATIENT REPORTS DECREASED APPETITE BUT NO C/O NAUSEA. TOLERATING GENERAL DIET, DOESN'T EAT MUCH AT A TIME. NOTED ELEVATED BS WITH TPN. DIETARY DISCUSSING NEED FOR TPN WITH NEPHROLOGY AND WILL LIKELY BE DC'D AFTER CURRENT BAG. AM BS WAS 230, ALUMINUM CAN COLLECTOR GAVE SSI. AM MEDS TAKE WITH A SIP OF WATER. NO FREE WATER OTHERWISE. LEFT IJ TO INT. LEFT UPPER ARM FISTULA WITH GOOD BRUIT & THRILL. PATIENT REPORTS COMING IN TO HOSPITAL WITH BLOOD STOOLS, NONE NOTED THIS SHIFT. EGD/COLON COMPLETED, SEE REPORT. HEAD TO TOE ASSESSMENT COMPLETE. PT/OT CONSULTED. NO OTHER NEEDS AT THIS TIME. CALL LIGHT IN REACH.
[2021-01-16 08:13] VITALS: BP 137/46; PULSE 67; TEMP 97.8
--- NOTE | 2021-01-16 10:53 | NUR ---
BROCK faxed updates to [facility] and [facility].
--- NOTE | 2021-01-16 11:32 | NUR ---
The patient's attending, Dr. Lazcano, informed SW that the patient is doing a lot better and eager to work with therapy. He would like to see if [facility] will consider her. He is thinking tentative d/c tomorrow. SW notified [facility] Director, Joan. Joan plans to see how the patient does with PT and will then inform Dr. Lazcano if able to accept or not. BROCK notified and faxed updates to Khalida at [facility]. BROCK attempted to contact and update the patient's niece, Kim. SW left her a voicemail. SW also informed Dr. Lazcano that if [facility] is unable to take, then [facility] has accepted and they would just require a COVID test.
[2021-01-16 12:23] VITALS: BP 123/39; PULSE 58; TEMP 97.5
[2021-01-16 15:52] VITALS: BP 118/35; PULSE 60; TEMP 97.8
[2021-01-16 19:23] VITALS: BP 120/40; PULSE 58; TEMP 98.6
--- NOTE | 2021-01-16 21:45 | NUR ---
Pt. sitting up in bed. Pt. is A&OX3, assessment complete. TLC to Lt. IJ patent. Pt. denies pain or other needs, call light within reach.
[2021-01-17 03:38] VITALS: BP 126/38; PULSE 62; TEMP 97.4
[2021-01-17 07:07] LABS: BASO % 0.3 % (0.0-2.0); EOS # 0.1 (0.0-0.7); EOS % 1.9 % (0-4.0); GRAN # 5.2 (1.4-6.5); LYMPH # 1.2 (1.2-3.4); LYMPH % 16.2 % (20.0-51.0); MEAN CORPUSCULAR HGB CONC 31 g/dl (33.0-37.0); MEAN PLATELET VOLUME 11.8 fl (7.4-10.4); MONO # 0.5 (0.1-0.6); MONO % 7.2 % (1.7-9.3); PLATELET COUNT 89 K/mm3 (130-400); RED BLOOD COUNT 2.63 M/mm3 (4.10-5.30)
[2021-01-17 07:15] LABS: HEMATOCRIT 27.5 % (37.0-47.0); HEMOGLOBIN 8.4 g/dl (12.5-16.0); MEAN CELL VOLUME 105 fl (80.0-100.0); MEAN CORPUSCULAR HEMOGLOBIN 32 pg (27.0-31.0)
[2021-01-17 07:18] LABS: CALCIUM 6.9 mg/dL (8.4-10.2); CREATININE, serum 4.01 (0.52-1.25); MAGNESIUM 2.1 mg/dL (1.6-2.3); PHOSPHOROUS 4.4 mg/dL (2.5-4.5); POTASSIUM 3.4 mmol/L (3.4-5.0)
[2021-01-17 07:26] VITALS: BP 144/42; PULSE 64; TEMP 97.5
[2021-01-17 12:04] VITALS: BP 110/46; PULSE 64; TEMP 97.5
--- NOTE | 2021-01-17 12:40 | NUR ---
PATIENT BACK IN ROOM FROM DIALYSIS. FRIEND AT BEDSIDE.
--- NOTE | 2021-01-17 13:10 | NUR ---
ORTHODONTIST CALLED AND REPORTED THAT PATIENT CALLED OUT ON HER CALL LIGHT AND THEN HAD A PSEUDOSEIZURE WITH NURSING STAFF AT BEDSIDE. PATIENT ARCHED HER HEAD BACK IN BED. AFTER SEVERAL MINUTES PATIENT SAT UP AND WAS TALKING WITH STAFF, SAYING SHE FELT IT WAS GOING TO HAPPEN. PATIENT IS A&O AND UP IN BED. VSS.
--- NOTE | 2021-01-17 13:10 | NUR ---
AT BEDSIDE ROUNDING.
--- NOTE | 2021-01-17 13:40 | NUR ---
Patient tolerated HD tx with 2L fluid removal, attempted 3L & patient became hypotensive. Next planned HD tx on Friday01/19/21 @ 0800.
--- NOTE | 2021-01-17 14:31 | NUR ---
Joan, [facility] Director, reports that they are unable to take the patient and she has informed Dr. Lazcano. The patient may be able to d/c today. BROKC notified and faxed updates to Khalida at [facility]. BROCK attempted to contact the patient's niece, Kim, and sister, Samantha, to update. BROCK left them voicemails.
--- NOTE | 2021-01-17 14:37 | NUR ---
The patient's sister, Samantha, returned BROCK's phone call. BROCK updated her of the plan. Samantha was agreeable to the plan and states that she will try and get a hold of Kim to update her as well.
[2021-01-17 15:07] VITALS: BP 113/65; PULSE 61; TEMP 97.2
--- NOTE | 2021-01-17 16:39 | NUR ---
Khalida, at [facility], reports that they are able to accept the patient tomorrow. SW updated the patient's RN. SW attempted to contact the patient's niece, Kim, again to update. SW left her a voicemail.
[2021-01-17 20:11] VITALS: BP 118/40; PULSE 64; TEMP 98.1
--- NOTE | 2021-01-17 22:00 | NUR ---
Pt. laying in bed. Pt. is A&OX3, assessment complete. TLC to lt. IJ. Pt. denies pain or other needs, call light within reach.
[2021-01-17 23:48] VITALS: BP 120/35; PULSE 69; TEMP 98
[2021-01-18 03:36] VITALS: BP 134/37; PULSE 61; TEMP 97.6
[2021-01-18 03:40] VITALS: BP 134/54
[2021-01-18 06:59] LABS: CALCIUM 7.3 mg/dL (8.4-10.2); CREATININE, serum 3.14 (0.52-1.25); MAGNESIUM 2.2 mg/dL (1.6-2.3); PHOSPHOROUS 4.2 mg/dL (2.5-4.5); POTASSIUM 3.3 mmol/L (3.4-5.0)
[2021-01-18 07:14] VITALS: BP 133/76; PULSE 63; TEMP 98.1
[2021-01-18 09:32] VITALS: BP 119/38; PULSE 63; TEMP 98.1
--- NOTE | 2021-01-18 10:30 | NUR ---
Patient is discharging to the longterm today. We are waiting for Dr Lazcano to come her and complete the discharge orders. She is alert and oriented today. She is worried because she continues to be weak and has not fully regained her strenght. Explained that because of the infection and the pneumonia that is normal. No other changes at this time. Call light within reach.
[2021-01-18 11:21] VITALS: BP 126/35; PULSE 64; TEMP 97.8
--- NOTE | 2021-01-18 11:39 | NUR ---
The patient is to tentatively d/c today. [facility] is able to take the patient today. SW met with the patient and presented and read the IM form outloud to her. The patient verbalized understanding and gave SW approval to sign the form on her behalf. SW provided her with a copy. SW contacted and updated the patient's niece, Kim. Kim is agreeable to the plan.
[2021-01-18] MEDS ORDERED: ZOLOFT 50MG50 MG PO (14:40)
[2021-01-18] MEDS ORDERED: PROBIOTIC ACID1 EAC3 PO (14:41)
[2021-01-18] MEDS ORDERED: ANTI-DIARRHEAL2 MG PO (14:41)
--- NOTE | 2021-01-18 14:43 | NUR ---
The patient is to discharge today, 01/18, to [facility] for a skilled stay. Transportation was scheduled at 1530, via [facility]. BROCK informed the patient, her RN, and the patient's niece (Kim) of the time. They were all agreeable to the time. No additional needs at this time.
--- NOTE | 2021-01-18 14:45 | NUR ---
Discontinue left IJ triple lumen catheter. Removed the old dressing, cleaned the area and line with sterile gloves. Removed to two sutures holding the line in placed. Removed the catheter without any resistance. Held pressure to the site for 10mins. Had patient lay flat for 30mins. No Reddness or drainage to site. Patient tolerated well. Charted intervention. No other changes at this time. Call light within reach.
[2021-01-18 15:05] VITALS: BP 126/35; PULSE 64; TEMP 97.8
--- NOTE | 2021-01-18 15:45 | NUR ---
Called report to Luh BUSTILLO at [facility]. All belongings packed up and sent with patient. She is looking forward to discharge. Info packet went with patient.
== END 2021-01-18 15:45 | DRG 377 ==
LOC: COL.ER 18:18 → ICU 20:37 → SURG 20:37 → ICU 01-11 14:20 → SURG 01-11 23:00
PROVIDERS: Emergency Medicine; Internal Medicine Gastroenterology; Internal Medicine Pulmonary Disease; Nurse Practitioner; ADMIT Internal Medicine Nephrology
PROC: 0W9B3ZZ Drainage of Left Pleural Cavity, Percutaneous Approach (ICD-10-PCS; principal; 2021-01-08)
PROC: 05HN33Z Insertion of Infusion Device into Left Internal Jugular Vein, Percutaneous Approach (ICD-10-PCS; 2021-01-08)
PROC: 5A1D70Z Performance of Urinary Filtration, Intermittent, Less than 6 Hours Per Day (ICD-10-PCS; 2021-01-08)
PROC: 0DBE8ZX Excision of Large Intestine, Via Natural or Artificial Opening Endoscopic, Diagnostic (ICD-10-PCS; 2021-01-12 12:00)
DX: K55.21 Angiodysplasia of colon with hemorrhage (principal); J18.9 Pneumonia, unspecified organism; N18.6 End stage renal disease; I12.0 Hypertensive chronic kidney disease with stage 5 chronic kidney disease or end stage renal disease; E87.2 Acidosis; E87.1 Hypo-osmolality and hyponatremia; J90 Pleural effusion, not elsewhere classified; N25.81 Secondary hyperparathyroidism of renal origin; F32.9 Major depressive disorder, single episode, unspecified; I95.9 Hypotension, unspecified; E11.22 Type 2 diabetes mellitus with diabetic chronic kidney disease; E83.51 Hypocalcemia; D63.1 Anemia in chronic kidney disease; Z20.822 Contact with and (suspected) exposure to COVID-19; E83.39 Other disorders of phosphorus metabolism; E66.9 Obesity, unspecified; D50.0 Iron deficiency anemia secondary to blood loss (chronic); R19.7 Diarrhea, unspecified; K64.0 First degree hemorrhoids; Z90.49 Acquired absence of other specified parts of digestive tract; Z95.0 Presence of cardiac pacemaker
CPT/HCPCS: C9113; J0610; J0692; J1815; J2704; J3370; J3475; J3480; J7030; J7040; J7050; J7131; Q5105